=== PATIENT | male | born 1965 | race Caucasian/White ===

== ENCOUNTER 2017-10-31 15:32 | Emergency (ER) | payer OTHER ==
[~2017-10-31] VITALS: Ht 165.1 cm; Wt 62.6 kg
[2017-10-31 15:35] VITALS: Ht 165.1 cm; Wt 62.6 kg
[2017-10-31 17:06] LABS: BASOPHIL % 0.2 % (0-2); PLATELET COUNT 230 x10^3mcL (130-400); RED CELL DISTRIBUTION WIDTH 12.7 % (11.5-14.5)
[2017-10-31 17:19] LABS: CALCIUM 8.1 mg/dL (8.5-10.1); CARBON DIOXIDE 27.3 mmol/L (21-32); CHLORIDE SERUM 105 mmol/L (98-107); CREATININE SERUM 0.7 mg/dL (0.7-1.3); GFR1 > 60 mL/min; GLUCOSE SERUM 88 mg/dL (74-106); POTASSIUM SERUM 3.5 mmol/L (3.5-5.1); SODIUM SERUM 138 mmol/L (136-145)
[2017-10-31 17:23] LABS: ALBUMIN 3.5 g/dL (3.4-5.0); ALKALINE PHOSPHATASE 65 U/L (46-116); ALT/SGPT 86 U/L (16-63); AST/SGOT 53 U/L (15-37); TOTAL PROTEIN, SERUM 6.4 g/dL (6.4-8.2)
[2017-10-31 17:25] LABS: AMPHETAMINE QUAL UR NONE DETECTED (NEG <=1000)
[2017-10-31 18:27] VITALS: BP 124/85
== END 2017-10-31 18:27 | disposition home or self-care (01) ==
LOC: ED 15:32
PROVIDERS: Emergency Medicine
DX: F20.9 Schizophrenia, unspecified (principal); F31.9 Bipolar disorder, unspecified; R45.851 Suicidal ideations; Z01.818 Encounter for other preprocedural examination
CPT/HCPCS: 36415; G0480

== ENCOUNTER 2020-01-25 19:18 | Emergency (ER) | payer OTHER ==
[~2020-01-25] VITALS: Ht 162.6 cm; Wt 59.0 kg
[2020-01-25 19:29] VITALS: Ht 162.6 cm; Wt 59.0 kg
[2020-01-26 02:30] VITALS: BP 112/70
== END 2020-01-26 02:30 | disposition home or self-care (01) ==
LOC: ED 19:18
DX: F10.20 Alcohol dependence, uncomplicated (principal); Y90.9 Presence of alcohol in blood, level not specified